=== PATIENT | male | born 1930 | race Caucasian/White ===

== ENCOUNTER → 2018-11-24 | Outpatient (CLI) | payer OTHER, BC ==
[~2018-11-24] VITALS: Ht 180.3 cm; Wt 99.8 kg
[~2018-11-24] MED LIST: ACIDOPHILUS1 EAC4 PO; ATENOLOL 50 MG50 M1 PO; COLACE100 MG PO; COUMADIN 5 MG TA5 M1 PO; COUMADIN7.5 MG PO; DICLOFENAC SODI75 MG PO; ELAVIL PO; FINASTERIDE5 MG PO; HYDROCHLOROTHIA25 M1 PO; LIPITOR20 MG PO; NORCO 10-325 T1 EACH; SENOKOT-S1 TA2 PO; STOOL SOFTENER50 MG PO; TENORMIN50 MG PO; ULTRACET TABLE1 EACH PO; VOLTAREN75 MG PO
[2018-11-24 10:04] LABS: INR 1.1; PROTIME 11.4 Seconds (9.3-11.4)
--- NOTE | 2018-11-27 14:38 | P ---
[facility] [place] [address] PROCEDURE REPORT Name: TAMAR THOMAS Room #: REG [facility]#: [id number] Admission: 11/24/18 ������������������ Attend Phys: Arnie Veras Discharge: ������������������ Date of : [birth year] Report #: [id number] THIS REPORT FOR: //name// CC: Arnie Aguilar MD DATE OF SERVICE: 11/24/2018 PROCEDURE PERFORMED: Colonoscopy. HISTORY OF PRESENT ILLNESS: The patient is an 88-year-old male who was seen by myself in the office on 11/21/2018 with complaints of intermittent bright red blood per rectum. Symptoms began on 11/09/2018. He reported the blood was mixed in with the stool. At that time, he had been taking Coumadin for chronic atrial fibrillation; this has now been held for the last week. He has had several episodes, but after holding Coumadin, it basically stopped. Last colonoscopy was 9 years ago, showing internal hemorrhoids and sigmoid diverticulosis, but otherwise negative. No family history of colon cancer. The patient denies any constipation or diarrhea in general, though he has some mild constipation at times. Plan is for colonoscopy. DESCRIPTION OF PROCEDURE: The risks and benefits of the procedure were explained to the patient; those risks including but not limited to bleeding, perforation and the risk of sedation. He understood these risks and gave informed consent. Sedation was given using propofol per Anesthesia. Next, a digital rectal exam was initially performed, which was normal. Next, using a standard Olympus colonoscope, the scope was placed in the patient's anus and advanced under direct vision to the cecum. The overall prep was good. The cecum and ileocecal valve were normal in appearance. A few small scattered diverticula were noted in the ascending colon. No evidence of inflammation, otherwise normal. The transverse and descending colon were normal. Multiple diverticula again noted in the sigmoid colon. No evidence of inflammation. The rectal mucosa was normal. On retroflexion, kuhyr-mv-mdenss-sized nonbleeding internal hemorrhoids were noted. Close examination of the anal canal showed internal hemorrhoids. No evidence of significant external hemorrhoids. No evidence of anal fissure. There was mild skin excoriation in the perianal region, but again no bleeding or anal fissure. Scope was then withdrawn and the procedure terminated. The patient tolerated the procedure well. IMPRESSION: 1. Diverticulosis, as described above. No stigmata of recent bleeding. 2. Internal hemorrhoids, likely the cause of recent bright red blood per rectum. 3. Otherwise, normal colonoscopy. [address] [address] PROCEDURE REPORT Name: TAMAR THOMAS Room #: REG [facility] Binu.#: [id number] Admission: 11/24/18 ������������������ Attend Phys: Arnie Veras Discharge: ������������������ Date of : [birth year] Report #: [id number] RECOMMENDATIONS: 1. High-fiber diet. 2. Analpram on a p.r.n. basis. 3. I would recommend restarting Coumadin at this time and observe. If the patient has recurrent bleeding despite Analpram and high-fiber diet, could consider possible internal hemorrhoid banding in the future. Thank you for allowing me to participate in his care. ��������������������������������������������� <ELECTRONICALLY SIGNED> ���������������������������������������� By: Arnie Quick MD ��������������������������������������������� 11/27/18 [id number] Arnie Quick MD /nt
== END | disposition home or self-care (01) ==
LOC: GI 08:43
PROVIDERS: Specialist
DX: K57.30 Diverticulosis of large intestine without perforation or abscess without bleeding (principal); K64.8 Other hemorrhoids; I10 Essential (primary) hypertension; I48.91 Unspecified atrial fibrillation; M19.90 Unspecified osteoarthritis, unspecified site; E78.5 Hyperlipidemia, unspecified; N40.0 Benign prostatic hyperplasia without lower urinary tract symptoms; Z98.42 Cataract extraction status, left eye; Z98.41 Cataract extraction status, right eye; Z98.890 Other specified postprocedural states; Z79.01 Long term (current) use of anticoagulants; Z79.899 Other long term (current) drug therapy; Z96.642 Presence of left artificial hip joint; Z85.828 Personal history of other malignant neoplasm of skin
CPT/HCPCS: 62110; 62900

== ENCOUNTER → 2019-08-01 | Outpatient (CLI) | payer OTHER | LOC: SJCVC 11:30 | DX: R94.31 Abnormal electrocardiogram [ECG] [EKG] (principal); I48.21 Permanent atrial fibrillation; I11.0 Hypertensive heart disease with heart failure; I50.32 Chronic diastolic (congestive) heart failure; I65.23 Occlusion and stenosis of bilateral carotid arteries; E78.00 Pure hypercholesterolemia, unspecified; Z79.01 Long term (current) use of anticoagulants; Z96.649 Presence of unspecified artificial hip joint; Z79.899 Other long term (current) drug therapy; Z87.891 Personal history of nicotine dependence ==

== ENCOUNTER → 2020-02-14 | Outpatient (CLI) | payer OTHER | LOC: SJCVCIMAG 07:37 | PROVIDERS: ATTEND Internal Medicine | DX: I65.23 Occlusion and stenosis of bilateral carotid arteries (principal); R94.31 Abnormal electrocardiogram [ECG] [EKG]; I11.0 Hypertensive heart disease with heart failure; I50.32 Chronic diastolic (congestive) heart failure; I48.21 Permanent atrial fibrillation; E78.5 Hyperlipidemia, unspecified; Z79.01 Long term (current) use of anticoagulants; Z79.899 Other long term (current) drug therapy; Z87.891 Personal history of nicotine dependence ==